=== PATIENT | female | born 1965 | race Caucasian/White ===

== ENCOUNTER → 2016-06-07 | Day surgery (SDC) | payer OTHER ==
[~2016-06-07] MED LIST: APREPITANT 40 MG CAP ONE; BUPIVACAINE HCL PF 0.25% 30 ML VIAL ONE; GABA300C3 PO; HYDR200T42 PO; LACTATED RINGER'S 1000 ML INJ 1,000 ML ONE; MEPERIDINE HCL 25 MG/ML VIAL ONE; MIDAZOLAM HCL 2 MG/2 ML VIAL ONE; ONDANSETRON HCL 4 MG/2 ML VIAL IV PUSH ONE; PRED20 PO; PROPOFOL 200 MG/20 ML AMP IV ONE; SODIUM CHLORIDE 0.9% INJ 10 ML ONE; TYLE3 PO; ceFAZolin INJ 1,000 MG VIAL ONE; oxyCODONE/ACETAMINOPHEN 5 MG/325 MG TAB ONE
--- NOTE | 2016-06-22 08:09 | MP ---
cc: ESTHER BURRELL THIS IS A REPEAT OPERATIVE NOTE DATE OF SURGERY 06/07/2016 PREOPERATIVE DIAGNOSIS Expanding area in the right upper labia of cellulitis with possible abscess. POSTOPERATIVE DIAGNOSIS Expanding area in the right upper labia of cellulitis with possible abscess, excised and cleaned. PROCEDURE Excision of organized cellulitis abscess area in the right labia extending into the mons with pelvic lavage, obliteration of space and cosmetic closure. ANESTHESIA General SURGEON Esther Burrell MD CLAIMS COLLECTOR Elvin Bill, third year medical student FINDINGS Exam under anesthesia revealed about a 3-4 cm elliptical rubbery, erythematous, indurated area that was exquisitely painful when the patient was awake. It had not yet begun to point either inside the vaginal vault or outside. An area of ideal incision was identified and an attempt was made to shell this out as if it were an intact abscess. It actually was more of an cellulitis with fairly obvious demarcated edges between healthy tissue and necrotic indurated tissue. The area was fully debrided digging underneath up into the mons above the pubic symphysis, washed thoroughly and then the space closed and a cosmetic closure performed. There was no evidence of growing hematoma or bleeding and she tolerated procedure well. PROCEDURE The patient was taken to the operating room after she was seen in holding, prepped and draped in the usual sterile fashion, placed under general anesthesia. She was given Ancef two grams. She was in the dorsal lithotomy position and a red rubber catheter was used to empty the bladder. A time-out was performed with all in attendance. The area was numbed with Marcaine with epi and then an incision was made at the inferior edge close to where the vaginal mucosa was. Then this was undermined and the necrotic tissue was fairly easily from healthy tissue up to and underneath the symphysis. This whole areas was removed and sent to pathology looking for brisk bleeding to suggest healthy tissue. Multiple sutures were placed in this cavity to obliterate space with a final cosmetic closure using Monocryl. Pressure was held for a reasonable length of time and no evidence of hematoma or bleeding were noted. She was placed in dorsal supine position, awoken and taken to the recovery room stable condition. MD BETSEY Steel/DAVIE /11:42 AM /7:52 AM
== END | disposition home or self-care (01) ==
LOC: ESDC 10:03
PROVIDERS: ATTEND Obstetrics & Gynecology
DX: N90.89 Other specified noninflammatory disorders of vulva and perineum (principal)
CPT/HCPCS: 00906; 56620; 87070; 87205; 88305; J0690; J2175; J2250; J2405; J3010; J7120; J8501